=== PATIENT | male | born 1960 | race Hispanic/Latino ===

== ENCOUNTER 2022-07-02 10:01 | Outpatient (CLI) | payer MEDICARE, MEDICAID ==
[2022-07-02 11:24] LABS: Anion Gap 13 mmol/L (10-20); Calc. Creatinine Clearance 0 mL/min (70-130); Calcium 9.5 mg/dL (7.8-10.44); Carbon Dioxide 26 mmol/L (23-31); Chloride 105 mmol/L (98-107); Estimated GFR 98; Glucose 93 mg/dL (80-115); Potassium 4.8 mmol/L (3.5-5.1); Sodium 139 mmol/L (136-145)
[2022-07-02 12:07] LABS: BUN (Urea Nitrogen) 15 mg/dL (8.4-25.7)
== END 2022-07-02 10:02 | disposition home or self-care (01) ==
LOC: CSHLAB 10:01
PROVIDERS: ATTEND Otolaryngology Otolaryngic Allergy
DX: Z01.812 Encounter for preprocedural laboratory examination (principal); G47.33 Obstructive sleep apnea (adult) (pediatric); J34.2 Deviated nasal septum; J34.3 Hypertrophy of nasal turbinates
CPT/HCPCS: 80048

== ENCOUNTER 2022-07-07 07:17 | Day surgery (SDC) | payer MEDICARE, MEDICAID ==
[2022-07-06 13:03] VITALS: BMI 27.1
[2022-07-07] MEDS ORDERED: PROPOFOL 20 ML ONE (09:31)
== END 2022-07-07 10:30 | disposition home or self-care (01) ==
LOC: CSHSDC 07:17
PROVIDERS: ATTEND Otolaryngology Otolaryngic Allergy
PROC: 0CJS8ZZ Inspection of Larynx, Via Natural or Artificial Opening Endoscopic (ICD-10-PCS; principal; 2022-07-07)
DX: G47.33 Obstructive sleep apnea (adult) (pediatric) (principal); J34.2 Deviated nasal septum; J34.3 Hypertrophy of nasal turbinates; H61.23 Impacted cerumen, bilateral; K13.79 Other lesions of oral mucosa; J45.909 Unspecified asthma, uncomplicated; E11.9 Type 2 diabetes mellitus without complications; I10 Essential (primary) hypertension; F32.A Depression, unspecified; G43.909 Migraine, unspecified, not intractable, without status migrainosus; R13.10 Dysphagia, unspecified; Z79.899 Other long term (current) drug therapy
CPT/HCPCS: J2704

== ENCOUNTER 2022-08-25 06:06 | Day surgery (SDC) | payer MEDICARE, MEDICAID ==
[2022-08-21 12:31] VITALS: BMI 26.4
[2022-08-25] MEDS ORDERED: PROPOFOL 20 ML ONE (06:38)
[2022-08-25] MEDS ORDERED: Fentanyl 250 MCG/5 ML VIAL ONE (06:38)
[2022-08-25] MEDS ORDERED: Midazolam HCl 2 mg/2 ml Vial ONE (06:38)
[2022-08-25] MEDS ORDERED: Ondansetron PF 4 MG/2 ML Vial ONE (06:39)
[2022-08-25] MEDS ORDERED: Lidocaine 1% PF 5 ML VIAL ONE (06:39)
[2022-08-25] MEDS ORDERED: Rocuronium Bromide 10 MG/ML (10ML VIAL) ONE (06:39)
[2022-08-25] MEDS ORDERED: Dexamethasone 20 MG/5 ML VIAL ONE (06:39)
[2022-08-25] MEDS ORDERED: EPINEPHrine 1 MG/ML AMP ONE (06:53)
[2022-08-25] MEDS ORDERED: CEFAZOLIN 2 GM VIAL ONE (07:20)
[2022-08-25] MEDS ORDERED: Glycopyrrolate 0.2 MG/ML 5 ML SYRINGE ONE (07:23)
[2022-08-25] MEDS ORDERED: PHENYLEPHRINE-NS 100 MCG/ML 10 ML SYRINGE ONE (07:42)
[2022-08-25] MEDS ORDERED: ePHEDrine Sulfate 50 MG/10 ML VIAL ONE (08:00)
== END 2022-08-25 11:15 | disposition home or self-care (01) ==
LOC: CSHSDC 06:06
PROVIDERS: ATTEND Otolaryngology Otolaryngic Allergy
PROC: 0JH60BZ Insertion of Single Array Stimulator Generator into Chest Subcutaneous Tissue and Fascia, Open Approach (ICD-10-PCS; principal; 2022-08-25)
PROC: 00HE0MZ Insertion of Neurostimulator Lead into Cranial Nerve, Open Approach (ICD-10-PCS; 2022-08-25)
DX: G47.33 Obstructive sleep apnea (adult) (pediatric) (principal); I10 Essential (primary) hypertension; E11.9 Type 2 diabetes mellitus without complications; Z79.899 Other long term (current) drug therapy
CPT/HCPCS: 64582; 70360; C1820; C1898; J0171; J1100; J2250; J2405; J2704; J3010